=== PATIENT | female | born 1965 | race Caucasian/White ===

== ENCOUNTER 2023-10-22 09:33 | Day surgery (SDC) | payer OTHER ==
[2023-10-22] MEDS ORDERED: BUPIVACAINE 0.5% VIAL IJ ONE (09:34)
[2023-10-22] MEDS ORDERED: Depo-Medrol 40 MG/ML IM ONE (09:34)
[2023-10-22] MEDS ORDERED: DIPRIVAN 200 MG/20 ML IV ONE (11:19)
[2023-10-22] MEDS ORDERED: Lactated Ringers 1,000 ML IV ONE (11:25)
--- NOTE | 2023-10-22 12:40 | XRAY ---
Indication: Right hip and greater trochanter bursa injection. Intraoperative fluoroscopy provided for 19 seconds. 2 digital spot image submitted for interpretation demonstrates needle tips projecting lateral to right femur neck and greater trochanter. Small amount of contrast injected for both needle placement. Correlate with intraoperative findings/report.
--- NOTE | 2023-10-22 12:55 | XRAY ---
19 seconds of fluoroscopy was used in surgery for a right intra-articular hip and greater trochanteric bursa injection.
== END 2023-10-22 11:50 | disposition home or self-care (01) ==
LOC: SDC-PAIN 09:33
PROVIDERS: ATTEND Psychiatry & Neurology Pain Medicine
DX: M16.0 Bilateral primary osteoarthritis of hip (principal); E11.9 Type 2 diabetes mellitus without complications
CPT/HCPCS: 20610; 73502; 77002; 82947; J1010; J2704; Q9966; J1030

== ENCOUNTER 2024-05-12 15:56 | Day surgery (SDC) | payer OTHER ==
[2024-05-12] MEDS ORDERED: Depo-Medrol 40 MG/ML IM ONE (15:57)
[2024-05-12] MEDS ORDERED: LIDOCAINE HCL 1% AMPUL 5 ML IJ ONE (15:57)
[2024-05-12] MEDS ORDERED: BUPIVACAINE 0.5% VIAL IJ ONE (15:57)
--- NOTE | 2024-05-12 18:32 | XRAY ---
Indication: Right greater trochanter bursa injection. Intraoperative fluoroscopy provided for 11 seconds. Single digital spot image submitted for interpretation demonstrates needle tip projecting lateral to right greater trochanter. Small amount of contrast injected for needle tip placement. Correlate with intraoperative findings/report.
--- NOTE | 2024-05-13 09:20 | XRAY ---
11 seconds of fluoroscopy was used in surgery for a right greater trochanteric bursa injection.
== END 2024-05-12 17:05 | disposition home or self-care (01) ==
LOC: SDC-PAIN 15:56
PROVIDERS: ATTEND Psychiatry & Neurology Pain Medicine
DX: M70.61 Trochanteric bursitis, right hip (principal); E11.9 Type 2 diabetes mellitus without complications
CPT/HCPCS: 20610; 73501; 77002; 82947; Q9966

== ENCOUNTER 2024-07-20 14:38 | Day surgery (SDC) | payer OTHER ==
[2024-07-20] MEDS ORDERED: Lopressor 25MG Tab PO ONE ×2 (17:21→17:30)
--- NOTE | 2024-07-20 19:53 | XRAY ---
Indication: Left greater trochanter bursa injection. Intraoperative fluoroscopy provided for 9 seconds. Single digital spot images submitted for interpretation demonstrates needle tip projecting lateral to left greater trochanter. Small amount of contrast injected for needle tip placement. Correlate with intraoperative findings/report.
--- NOTE | 2024-07-20 19:55 | XRAY ---
9 seconds of fluoroscopy used in surgery for a left greater trochanteric bursa injection.
== END 2024-07-20 17:45 | disposition home or self-care (01) ==
LOC: SDC-PAIN 14:38
PROVIDERS: ATTEND Psychiatry & Neurology Pain Medicine
DX: M70.62 Trochanteric bursitis, left hip (principal); M70.61 Trochanteric bursitis, right hip; E11.9 Type 2 diabetes mellitus without complications
CPT/HCPCS: 20610; 73501; 77002; 82947; Q9966; A9270-GY